=== PATIENT | female | born 2005 | race Caucasian/White ===

== ENCOUNTER 2024-04-29 13:53 | Emergency (ER) | payer SELFPAY ==
[2024-04-29] MEDS: Ondansetron 4 MG Tab.DIS PO STA (14:21)
[2024-04-29] MEDS: oxyCODONE 5 MG Tab PO STA (14:21)
== END 2024-04-29 15:23 | disposition home or self-care (01) ==
LOC: MW.ED 13:53
DX: M53.3 Sacrococcygeal disorders, not elsewhere classified (principal); F17.210 Nicotine dependence, cigarettes, uncomplicated; Z75.8 Other problems related to medical facilities and other health care; W00.0XXA Fall on same level due to ice and snow, initial encounter
CPT/HCPCS: 72220; 99283; A9270